=== PATIENT | male | born 1960 | race Two or more races ===

== ENCOUNTER 2024-12-08 10:30 | Emergency (ER) | payer OTHER ==
[~2024-12-08] VITALS: Ht 172.7 cm; Wt 94.1 kg
[2024-12-08 10:40] VITALS: TEMP 36.7; O2SAT 98
[2024-12-08 12:13] LABS: BASOPHILS % 0.8 % (0.0-2.0); EOSINOPHILS % 1.9 % (0.0-5.0); HEMOGLOBIN. 15.3 g/dL (14.0-18.0); LYMPHOCYTES % 19.5 % (20.0-50.0); MEAN CORPUSCULAR HEMOGLOBIN 31.4 pg (28.0-32.0); MEAN CORPUSCULAR HGB CONC 33.3 g/dL (31.0-37.0); MEAN CORPUSCULAR VOLUME 94.3 fL (80.0-94.0); MEAN PLATELET VOLUME 8.4 fl (7.4-10.4); MONOCYTES % 7.8 % (2.0-8.0); PLATELET 275 x1000/uL (130-400); RED BLOOD CELL COUNT 4.88 mill/uL (4.7-6.1); RED CELL DISTRIBUTION WIDTH 14.6 % (11.6-14.6); WHITE BLOOD COUNT 10.6 x1000/uL (4.5-11.0)
[2024-12-08 12:29] LABS: CHLORIDE 111 mEq/L (98-107); POTASSIUM 4.4 mEq/L (3.5-5.1); SODIUM 145 mEq/L (136-145)
[2024-12-08 12:30] LABS: CARBON DIOXIDE 26 mEq/L (21-32)
[2024-12-08 12:31] LABS: CALCIUM 10.3 mg/dL (8.7-10.4)
[2024-12-08 12:35] LABS: CREATININE 0.8 mg/dL (0.6-1.3); GLUCOSE 101 mg/dL (70-105); UREA NITROGEN BLOOD 16 mg/dL (9-23)
[2024-12-08] MEDS ORDERED: METH4TAB95 MT (12:45)
[2024-12-08 13:07] VITALS: BP 143/80; PULSE 76; RESP 21; O2SAT 99
== END 2024-12-08 13:09 | disposition home or self-care (01) ==
LOC: ER 10:30
DX: R21 Rash and other nonspecific skin eruption (principal)
CPT/HCPCS: 36415; 71045; 80048; 85025; 99284

== ENCOUNTER 2024-12-30 08:13 | Emergency (ER) | payer OTHER ==
[~2024-12-30] VITALS: Ht 172.7 cm; Wt 93.9 kg
[~2024-12-30 08:13] MED LIST: METH4TAB95 MT
[2024-12-30 08:18] VITALS: O2SAT 98
[2024-12-30] MEDS ORDERED: METH4TAB95 MT (08:42)
[2024-12-30 08:56] VITALS: BP 155/84; PULSE 76; RESP 18; TEMP 36.6; O2SAT 98
== END 2024-12-30 08:57 | disposition home or self-care (01) ==
LOC: ER 08:13
DX: R21 Rash and other nonspecific skin eruption (principal); Z68.31 Body mass index [BMI] 31.0-31.9, adult
CPT/HCPCS: 99283